=== PATIENT | female | born 1990 | race Caucasian/White ===

== ENCOUNTER 2017-05-26 13:52 | Emergency (ER) | payer OTHER ==
[~2017-05-26] VITALS: Ht 167.6 cm; Wt 64.0 kg
[2017-05-26 13:53] VITALS: BP 128/82
== END 2017-05-26 18:08 | disposition left against medical advice (07) ==
LOC: ER 15:00
DX: F41.0 Panic disorder [episodic paroxysmal anxiety] (principal); Z53.21 Procedure and treatment not carried out due to patient leaving prior to being seen by health care provider